=== PATIENT | female | born 2000 | race Caucasian/White ===

== ENCOUNTER 2022-09-02 06:51 | Emergency (ER) | payer MEDICAID ==
[~2022-09-02] VITALS: Ht 160 cm; Wt 50.0 kg
[2022-09-02] MEDS ORDERED: diphenhydrAMINE 50 mg/ml inj IV ONE (06:55)
[2022-09-02] MEDS ORDERED: LORazepam 2 mg/ml vial IV ONE (06:55)
[2022-09-02] MEDS ORDERED: haloperidol lactate 5mg/ml inj IM ONE ×2 (07:05→17:55)
[2022-09-02] MEDS ORDERED: DESM0.2T31 PO (07:28)
--- NOTE | 2022-09-02 07:41 | NUR ---
WILTON MITCHELL [phone] [facility] [phone]
--- NOTE | 2022-09-02 08:48 | NUR ---
Patient transferred to overflow bed 23 from main ER. Patient ambulated to her bed with assist from her boyfriend.
--- NOTE | 2022-09-02 08:50 | NUR ---
Received report from LAWRENCE Vasquez.
[2022-09-02 08:54] LABS: CLARITY,URINE CLEAR (Clear); COLOR,URINE YELLOW (Yellow); GLUCOSE, URINE NEGATIVE (Neg); KETONES,URINE >=80 mg/dl (Neg); LEUKOCYTE ESTERASE ,URINE NEGATIVE (Neg); NITRITES, URINE NEGATIVE (Neg); OCCULT BLOOD,URINE NEGATIVE (Neg); PH,URINE 5.5 (4.8-8.0); PROTEIN,URINE NEGATIVE (Neg); UROBILINOGEN,URINE 0.2 E.U/dL (0.2-1.0)
[2022-09-02 08:55] LABS: URINE HCG NEGATIVE (NEG)
--- NOTE | 2022-09-02 09:00 | NUR ---
tech inventoried pt belongings and placed them in corresponding locker to room number, pt wallet taken by friend, no valuables placed in the safe.
[2022-09-02 09:02] LABS: URINE AMPHETAMINE SCREEN NEGATIVE (Neg); URINE BARBITUATE SCREEN NEGATIVE (Neg); URINE BENZODIAZEPINES SCREEN NEGATIVE (Neg); URINE CANNABINOID SCREEN POSITIVE (Neg); URINE COCAINE SCREEN NEGATIVE (Neg); URINE METHADONE SCREEN NEGATIVE (Neg); URINE OPIATE SCREEN NEGATIVE (Neg); URINE PHENCYCLIDINE SCREEN NEGATIVE (Neg)
[2022-09-02 09:04] LABS: UA COLLECTION TYPE CLN CATCH MIDSTREAM
--- NOTE | 2022-09-02 09:12 | NUR ---
Lab with patient to draw labs.
[2022-09-02 09:23] LABS: BASOPHILS % (AUTO) 0.7 % (0-1); EOSINOPHILS % (AUTO) 0.3 % (0-6); HEMATOCRIT 39.8 % (35.0-45.0); HEMOGLOBIN 13.7 g/dl (12.0-16.0); LYMPHOCYTES % (AUTO) 35.2 % (21-51); MEAN CORPUSCULAR HEMOGLOBIN 31.1 PG (27.0-31.0); MEAN CORPUSCULAR HGB CONC 34.3 g/dL (33.0-36.5); MEAN CORPUSCULAR VOLUME 90.6 FL (78-98); MONOCYTES # (AUTO) 0.5 X10'3 (0-0.9); MONOCYTES % (AUTO) 9.1 % (2-12); NEUTROPHILS % (AUTO) 54.7 % (42-75); PLATELET COUNT 301 X10'3 (140-440); RED BLOOD COUNT 4.39 X10'6 (4.20-5.60); RED CELL DISTRIBUTION WIDTH 11.9 % (11.5-14.5); WHITE BLOOD COUNT 5.6 X10'3 (4.5-11.0)
[2022-09-02 09:37] LABS: ALANINE AMINOTRANSFERASE 25 U/L (12-78); ALBUMIN 5.2 G/DL (3.4-5.0); ALBUMIN/GLOBULIN RATIO 1.9 (1.1-1.5); ALKALINE PHOSPHATASE 39 IU/L (46-116); ANION GAP 13 (8-16); ASPARTATE AMINO TRANSFERASE 25 U/L (10-37); BILIRUBIN,TOTAL 0.6 MG/DL (0.1-1.0); BLOOD UREA NITROGEN 8 MG/DL (7-18); BUN/CREATININE RATIO 11.9 (6.6-38.0); CALCIUM 9.1 MG/DL (8.5-10.1); CHLORIDE 102 MMOL/L (99-107); CREATININE 0.67 MG/DL (0.40-0.90); GLUCOSE 86 MG/DL (70-104); POTASSIUM 3.3 MMOL/L (3.5-5.1); SODIUM 138 MMOL/L (135-145); TOTAL CARBON DIOXIDE 22.7 MMOL/L (24-32); TOTAL PROTEIN 7.9 G/DL (6.4-8.2); eGFR > 90 ML/MIN
[2022-09-02 09:45] LABS: ETHANOL < 0.010 GM/DL (0.0-0.010)
[2022-09-02] MEDS ORDERED: LORazepam 2 mg/ml vial IM ONE ×2 (10:00→17:35)
[2022-09-02] MEDS ORDERED: OLANZapine 2.5MG tablet PO ONE (10:00)
--- NOTE | 2022-09-02 10:02 | NUR ---
Patient getting agitated and yelling.
--- NOTE | 2022-09-02 10:08 | NUR ---
vandana sent pt packet to [facility]
--- NOTE | 2022-09-02 10:10 | NUR ---
New order received from Dr. Powell for Ativan 2mg IM and Zyprexa 10mg PO for agitation
--- NOTE | 2022-09-02 11:01 | NUR ---
Stacy ([facility] [place] [phone]
--- NOTE | 2022-09-02 11:05 | NUR ---
Patient has had very little relief from medications. She continues to be loud and disorganized at times.
--- NOTE | 2022-09-02 11:25 | NUR ---
Patient appears to finally be sleeping. Boyfriend at bedside.
--- NOTE | 2022-09-02 13:57 | NUR ---
Patient continues to sleep. No s/sx of distress.
--- NOTE | 2022-09-02 15:23 | NUR ---
Patient appears to be asleep on her right side. No s/sx of distress.
--- NOTE | 2022-09-02 16:54 | NUR ---
Patient awake and up to use the restroom. Denies needs.
--- NOTE | 2022-09-02 17:05 | NUR ---
Patient barricaded herself in the restroom. When she was removed, she threw herself on the floor. security assisted to get her in bed.
[2022-09-02] MEDS ORDERED: LORazepam 1 MG tablet PO ONE (17:10)
[2022-09-02] MEDS ORDERED: diphenhydrAMINE 25mg capsule PO ONE (17:10)
[2022-09-02] MEDS ORDERED: haloperidol 5mg tablet PO ONE (17:10)
[2022-09-02] MEDS ORDERED: haloperidol decanoate***LONG-ACTING*** 100mg/ml **IM only** inj. IM ONE (17:35)
[2022-09-02] MEDS ORDERED: diphenhydrAMINE 50 mg/ml inj IM ONE (17:35)
[2022-09-02] MEDS ORDERED: haloperidol lactate 5mg/ml inj ONE (17:46)
--- NOTE | 2022-09-02 17:57 | NUR ---
patient agitated, yerlling, screaming, and shaking her head all over, trying to hit her head against the wall. Order received from Dr. Powell for B52: Ativan 2mg IM, Haldol 5mg IM, and Benadryl 50mg IM. Security here and patient placed in 4 point hard restraints.
--- NOTE | 2022-09-02 18:47 | NUR ---
The patient became extremely agitated at change of shift and was banging her head. Security was called and she was placed in 4 point restraints. IM medications were given. Attempted one to one with the patient but she was unable speak in any kind of logical way. She continues to be periodically agitated and yelling out. Decreased stimuil
[2022-09-02] MEDS ORDERED: quetiapine 100mg tablet PO STA (19:29)
--- NOTE | 2022-09-02 19:34 | NUR ---
The patient remains restless and agitated. She is yelling out and at times saying odd disorganzied things. Discussed with PA and orders received.
--- NOTE | 2022-09-02 19:45 | NUR ---
The patient was released out of restraints. She did take PO seroquel but did try to cheek the medication but she did end up taking it.
--- NOTE | 2022-09-02 21:01 | NUR ---
Nurse to nurse with [facility]
--- NOTE | 2022-09-02 21:01 | NUR ---
The patient is currently sleeping
--- NOTE | 2022-09-02 22:14 | NUR ---
Nurse to nurse with RN at [facility]
--- NOTE | 2022-09-02 22:58 | NUR ---
The patient was awake and screaming peoples names. She was not accepting redirection. Security was called and the patient was assisted back to her bed.
--- NOTE | 2022-09-02 23:46 | NUR ---
The patient appears to be sleeping
--- NOTE | 2022-09-03 00:05 | NUR ---
Update with [facility]
[2022-09-03] MEDS ORDERED: OLANZapine 5mg rapidly disint. tablet PO ONE ×2 (00:12→07:00)
--- NOTE | 2022-09-03 00:17 | NUR ---
The patient has been accepted at [facility]. [facility] to arrange transport in the am.
--- NOTE | 2022-09-03 01:06 | NUR ---
The patient up to use the bathroom but then immediately went back to bed
--- NOTE | 2022-09-03 02:43 | NUR ---
The patient is up to use the bathroom
[2022-09-03] MEDS ORDERED: LORazepam 2 mg/ml vial ONE (02:57)
[2022-09-03] MEDS ORDERED: haloperidol lactate 5mg/ml inj IM ONE ×2 (03:05→12:45)
--- NOTE | 2022-09-03 03:19 | NUR ---
The patient became very agitated after waking up to use the bathroom. She was screaming, singing, locking herself in the bathroom, striking out at staff. She was placed in restraints for safety of staff. Dr. Lerner at the bedside and security at the bedside. IM medications were given. She continues to sing and be very disorganized
--- NOTE | 2022-09-03 03:31 | NUR ---
This RN is observing patient as primary RN and Tech are busy with other patient. The patient is yelling profanities and presents as tangential.
[2022-09-03] MEDS ORDERED: QUEtiapine 25mg tablet PO ONE (03:50)
[2022-09-03] MEDS ORDERED: quetiapine 100mg tablet PO ONE (04:10)
[2022-09-03] MEDS ORDERED: OLANZapine **IM** 10 mg inj. IM ONE ×3 (04:20→07:55)
--- NOTE | 2022-09-03 04:20 | NUR ---
Patient spat out her PO Seroquel, she refused to take the same medication on a secont attempt. An order was received for IM Zyprexa 10 mg IM.
--- NOTE | 2022-09-03 04:38 | NUR ---
The patient is calm. Restraints removed.
--- NOTE | 2022-09-03 06:30 | NUR ---
Assumed care of patient, pt. is sleeping at this time, rise and fall of chest noted. Addendum: 09/03/22 at 0658 by MATT She remains on 1:1 observation r/t psychosis and safety precautions.
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
[2022-09-03] MEDS ORDERED: LORazepam 2 mg/ml vial IM ONE ×2 (07:55→11:28)
--- NOTE | 2022-09-03 08:00 | NUR ---
Unable to complete mental health assessments this AM: [place] Suicide Severity Risk, Psych/Suicide Assessment, and CSSRS Screener r/t pt. non-compliance and psychosis.
--- NOTE | 2022-09-03 08:30 | NUR ---
Pt. is sleeping in bed at this time, rr are even and unlabored and HOB is elevated.
--- NOTE | 2022-09-03 10:26 | NUR ---
Pt. up to use the BR again and required hands-on assistance by this fiction and nonfiction writer prose r/t safety precautions as pt. is still unsteady on her feet. Staff waited in bathroom with pt. r/t fall precautions. Pt. took a long time on the toilet exhibitin bizarre behaviors AEB trying to stand on the toilet and reaching for/talking to unseen items. Pt. then attempted to throw herself on the floor and was caught by this fiction and nonfiction writer prose. She required the assistance of three staff members to get her back to bed as pt. put her whole weight on staff. Pt. continued to yell in a disorganized manner while in bed, but was eventually able to be redirected and accepted juice from staff.
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
--- NOTE | 2022-09-03 12:36 | NUR ---
PT. is sitting up attempting to eat lunch at this time, she continues to yell out intermittently and get out of bed requiring redirection.
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
--- NOTE | 2022-09-03 14:38 | NUR ---
Pt. remains in 4-point restraints at this time. She is sleeping and V/S are WNL. Pt's capillary refill was assessed on all four extremities by this law writer and is WNL. Skin temperature and color is WNL. Pt's needs are addressed, will continue to monitor closely.
--- NOTE | 2022-09-03 14:48 | NUR ---
Pt's mother called and does not want her to transfer at this time because she feels she is not stable enough (pt's mother is on a flight at this time to [place] to see pt.) This was endorsed to the chargeback analyst who will speak to pt's mother at her convience.
--- NOTE | 2022-09-03 15:03 | NUR ---
Pt. up to use the bathroom at this time. She had an incontinent episode and required the assistance of two staff members to ambulate and change her clothing r/t generalized weakness and resistance to care. Staff assisted pt. back to bed and restraints were removed, will continue to monitor pt. closely.
--- NOTE | 2022-09-03 16:37 | NUR ---
Pt. continues to sleep at this time, laying on her right side, rr are even and unlabored.
--- NOTE | 2022-09-03 17:10 | NUR ---
Pt's heart rate was 140 with palpation, this was endorsed to Dr. Luna and EKG was ordered. Other V/S WNL.
--- NOTE | 2022-09-03 17:25 | NUR ---
Per Dr. Luna, EKG WNL and no new orders obtained at this time.
--- NOTE | 2022-09-03 17:33 | NUR ---
Pt. sat up in bed on her back legs and peed on the bed. She had to be escorted to the bathroom by staff and helped to change her clothing. Bed linens were changed and pt. is back in bed singing at this time.
--- NOTE | 2022-09-03 18:08 | NUR ---
Pt. continues to yell out at intervals and wanders, requiring frequent redirection from staff. She continues to be very labile.
[2022-09-03 18:51] VITALS: BP 127/92
[2022-09-03] MEDS ORDERED: DESMOPRESSIN ACETATE 0.2 MG TABLET PO SCH (20:00)
== END 2022-09-03 19:13 ==
LOC: ER 06:53
DX: F23 Brief psychotic disorder (principal); Z20.822 Contact with and (suspected) exposure to COVID-19; Z88.2 Allergy status to sulfonamides
CPT/HCPCS: 36415; 80053; 80305; 80320; 81003; 81025; 84443; 85025; 87811; 93005; 96372; 96374; 96375; 99285; J1200; J1630; J2060; J3490; Q0163; A4353